=== PATIENT | male | born 1960 | race Caucasian/White ===

== ENCOUNTER 2016-11-09 09:06 | Emergency (ER) | payer BC ==
[2016-11-09] MEDS ORDERED: LIAL1.2T PO (09:30)
[2016-11-09] MEDS ORDERED: OMEP10CASR PO (09:30)
[2016-11-09] MEDS ORDERED: BUSP1TAB PO (09:30)
[2016-11-09] MEDS ORDERED: PRED5EL PO (09:30)
[2016-11-09] MEDS ORDERED: FLOM5CAP PO (09:30)
[2016-11-09] MEDS ORDERED: MOTR200T44 PO (09:30)
[2016-11-09] MEDS ORDERED: NORCO, ANEXSIA 5/325MG TABLET (HYDROcodone/ACETAMINOPHEN) PO ONE (10:15)
--- NOTE | 2016-11-09 10:59 | REP ---
ULTRASOUND LEFT FLANK: Real-time sonographic evaluation of the left flank performed. Reportedly there is bulging and pain in this region. There appears to be soft tissue edema in the abdominal wall. Just deep to the abdominal wall musculature is a possible complex fluid collection measuring 3.2 cm in diameter. Recommend CT abdomen and pelvis with oral and IV contrast to further evaluate. Signed by Car Dennis MD 11/09/2016 05:21 P
[2016-11-09] MEDS ORDERED: KETOROLAC 30 MG/ML VIAL (J1885) IV ONE (11:00)
[2016-11-09] MEDS ORDERED: GASTROGRAFIN SOLUTION 30ML (Q9963) PO ONE ×3 (11:00→12:15)
[2016-11-09 11:24] LABS: BASO % 0.2 % (0.0-1.0); EOS # 0.1 K/mm3 (0.0-0.50); EOS % 0.7 % (0.0-3.0); LARGE UNSTAINED CELL # 0.3 K/mm3 (0.0-0.4); LARGE UNSTAINED CELL % 2.1 % (0.0-4.0); LYMPH # 1.6 K/mm3 (1.5-4.5); LYMPH % 9.9 % (24.0-44.0); MEAN CORPUSCULAR HGB CONC 32.6 g/dl (32.0-36.5); MEAN CORPUSCULAR VOLUME 92.1 fl (80.0-96.0); MONO # 1.3 K/mm3 (0.0-0.8); MONO % 7.8 % (0.0-5.0); NEUTROPHILS # 12.8 K/mm3 (1.8-7.7); NEUTROPHILS % 79.2 % (36.0-66.0); PLATELET COUNT, AUTOMATED 367 k/mm3 (150-450); RED CELL DISTRIBUTION WIDTH 13.9 % (11.5-14.5); WHITE BLOOD COUNT 16.1 K/mm3 (4.0-10.0)
[2016-11-09 11:52] LABS: ALBUMIN/GLOBULIN RATIO 0.77 (1.00-1.93); ALKALINE PHOSPHATASE 66 U/L (45-117); ALT/SGPT 22 U/L (12-78); ANION GAP 8 MEQ/L (8-16); AST/SGOT 21 U/L (15-37); BILIRUBIN,DIRECT 0.2 MG/DL (0.0-0.2); BILIRUBIN,TOTAL 0.8 MG/DL (0.2-1.0); BLOOD UREA NITROGEN 12 MG/DL (7-18); CALCIUM LEVEL 8.3 MG/DL (8.5-10.1); CARBON DIOXIDE LEVEL 26 MEQ/L (21-32); CHLORIDE LEVEL 109 MEQ/L (98-107); CREATININE FOR GFR 0.66 MG/DL (0.70-1.30); GLOMERULAR FILTRATION RATE > 60.0 (>56); GLUCOSE, FASTING 79 MG/DL (70-105); POTASSIUM SERUM 3.9 MEQ/L (3.5-5.1); SODIUM LEVEL 143 MEQ/L (136-145); TOTAL PROTEIN 6.9 GM/DL (6.4-8.2)
[2016-11-09] MEDS ORDERED: ISOVUE-370 76% 100ML VIAL (Q9967) As Ordered ONE (12:55)
--- NOTE | 2016-11-09 13:59 | REP ---
CT ABDOMEN AND PELVIS WITH ORAL AND IV CONTRAST: TECHNIQUE: Axial contrast enhanced images from the lung bases to the pubic symphysis using 100 mL Isovue 370 intravenous contrast material with multiplanar reformations. The visualized lung bases appear clear. The liver demonstrates focal fatty infiltration anteriorly along the fissure for the ligamentum teres. The spleen, adrenals and pancreas appear unremarkable. There is a small cyst in the upper pole of the left kidney. There is no hydronephrosis. There are moderate atherosclerotic calcifications of the abdominal aorta without aneurysm. There is no significant adenopathy. I do not see significant free air or free fluid. There is diffuse thickening of the sigmoid colon with multiple diverticula. Findings are consistent with diffuse diverticulitis of the sigmoid. There is a somewhat ill-defined fluid collection in the left iliopsoas muscle in the left superior pelvis, measuring approximately 2.5 x 1.5 cm consistent with an abscess. This extends superolaterally in the iliac muscle and extends into the left abdominal wall along the lateral left iliac crest. A pocket of air and fluid at that location is consistent with an abscess measuring 2 cm in diameter. In the urinary bladder inferiorly is a polypoid soft tissue structure measuring about 2 cm in maximum diameter. This either represents a mass at the base of the bladder or prostate protruding into the bladder base. There does appear to be diffuse thickening of the bladder wall. IMPRESSION: Sigmoid diverticulitis. Associated left iliopsoas abscess as discussed above extends into the left inferior abdominal wall along the lateral left iliac crest. Polypoid soft tissue mass in the base of the bladder may represent a bladder mass or may represent prostate impressing upon the base of the bladder. Signed by Car Dennis MD 11/09/2016 05:23 P
[2016-11-09 14:13] VITALS: BP 125/69
--- NOTE | 2016-11-10 14:12 | ED PDOC ---
Provider Note dr alfonso faxed formal report of ct abd/p for fu davidg Roberto Schaefer MD Nov 10, 2016 14:12
--- NOTE | 2016-11-10 15:26 | ED PDOC ---
Provider Note reviewed Roberto Schaefer MD Nov 10, 2016 15:26
== END 2016-11-09 14:18 | disposition home or self-care (01) ==
LOC: M ED 10:11
DX: K57.32 Diverticulitis of large intestine without perforation or abscess without bleeding (principal); K21.9 Gastro-esophageal reflux disease without esophagitis; N28.1 Cyst of kidney, acquired; R93.5 Abnormal findings on diagnostic imaging of other abdominal regions, including retroperitoneum; Z79.899 Other long term (current) drug therapy
CPT/HCPCS: 36415; 74177; 76705; 80048; 80076; 81001; 83605; 83690; 85025; 96374; 99283; J1885; Q9963; Q9967

== ENCOUNTER 2016-12-11 09:04 | Emergency (ER) | payer BC ==
[~2016-12-11] VITALS: Ht 182.9 cm; Wt 65.8 kg
[~2016-12-11 09:04] MED LIST: BUSP1TAB PO; FLOM5CAP PO; LIAL1.2T PO; MOTR200T44 PO; OMEP10CASR PO; PRED5EL PO
[2016-12-11 09:05] VITALS: BP 114/75
[2016-12-11] MEDS ORDERED: LORA-376 PO (09:19)
== END 2016-12-11 09:56 | disposition home or self-care (01) ==
LOC: M ED 09:52
DX: K94.23 Gastrostomy malfunction (principal); I48.91 Unspecified atrial fibrillation; F31.9 Bipolar disorder, unspecified; Z79.899 Other long term (current) drug therapy